=== PATIENT | female | born 1990 | race Two or more races ===

== ENCOUNTER → 2024-10-01 | Emergency (ER) | payer OTHER ==
[~2024-10-01] VITALS: Ht 160 cm; Wt 55.3 kg
[~2024-10-01] MED LIST: 0.9 % SODIUM CHLORIDE 500 ML IV ONE; ACETAMINOPHEN 500 MG GEL..CAP PO ONE; BUTALB-ASPIRIN1 EACH PO; KETOROLAC TROMETHAMINE 30 MG VIAL IV ONE; KETOROLAC TROMETHAMINE 30 MG VIAL ONE; METOCLOPRAMIDE HCL 10 MG in DEXTROSE 5 % IN WATER 50 ML IV ONE; METOCLOPRAMIDE HCL 5 MG/ML VIAL ONE; OSELTAMIVIR PHOSPHATE 75 MG CAPSULE PO ONE; SUMATRIPTAN SUCCINATE 6 MG/0.5 ML VIAL SUBCUTANEO ONE
== END | disposition home or self-care (01) ==
LOC: ER 14:34
DX: G43.909 Migraine, unspecified, not intractable, without status migrainosus (principal)